=== PATIENT | female | born 1960 | race Caucasian/White ===

== ENCOUNTER 2018-11-28 08:39 | Day surgery (SDC) | payer BC, OTHER ==
[2018-11-27 12:56] VITALS: BMI 32.8
[2018-11-28] MEDS ORDERED: MIDAZOLAM HCL 2 MG/2 ML SINGLE DOSE VIAL ONE ×2 (11:01)
[2018-11-28] MEDS ORDERED: ceFAZolin SODIUM 1 GM VIAL IVPB ONE (11:12)
[2018-11-28] MEDS ORDERED: PROPOFOL 20 ML ONE (11:14)
[2018-11-28] MEDS ORDERED: ceFAZolin SODIUM 1 GM VIAL ONE (11:22)
[2018-11-28] MEDS ORDERED: LIDOCAINE 1%-EPI 1:100,000 30 ML MDV IJ ONE (11:24)
[2018-11-28] MEDS ORDERED: LIDOCAINE 1%/EPI 1:100000 (20 ML MULTI DOSE VIAL) IJ ONE (11:47)
[2018-11-28] MEDS ORDERED: BACITRACIN 50,000 UNITS VIAL NR ONE (11:48)
[2018-11-28 12:15] VITALS: TEMP 98.1
--- NOTE | 2018-11-28 12:47 | OP ---
Operative Note - Note: Operative Date: 11/28/18 Pre-Operative Diagnosis: Incontinence Operation: Removal of Interstim device Findings: retained battery and wire Post-Operative Diagnosis: Same as Pre-op Surgeon: Fabio Sky MD. Anesthesia: Epidural Specimens Removed: interstim device and wire Estimated Blood Loss (mls): 2
[2018-11-28 13:37] VITALS: BP 122/84; PULSE 79
--- NOTE | 2018-11-29 14:02 | OP ---
DATE OF OPERATION: 11/28/2018 PREOPERATIVE DIAGNOSES: Urge incontinence and fecal incontinence. POSTOPERATIVE DIAGNOSES: Urge incontinence and fecal incontinence. PROCEDURE: Removal of InterStim device. HISTORY: This is a pleasant 58-year-old female who had an InterStim device placed approximately 5 years ago by another physician. By patient report, the device had not been working for quite some time. It was recommended that the patient have the device removed and a new one placed at the same time; however, after a discussion with the patient's other physicians, it was determined to leave it out to get an MRI of her spine due to spinal condition and prior surgeries. All questions were answered. The patient agrees to proceed with the procedure. Risks and benefits were discussed in detail. BRIEF OPERATIVE NOTE: The patient was brought in the operating room, placed in the prone position. Once sedation was administered, patient was prepped and draped in standard sterile fashion. Intravenous antibiotics were given. At this time, an incision was made over the InterStim device pocket. The device was exposed using blunt and sharp dissection. The device was brought in to the operative field. The wire was identified and the site at which the wire was placed more towards the midline was identified. An approximately 1 cm incision was made over the initial percutaneous site. The wire was then rolled up and removed from the patient without difficulty. All prongs were intact. At this time, the entire device was removed. The operative field was irrigated with copious amounts of normal saline and antibiotic irrigation. The percutaneous site was closed using 1 subcuticular stitch of 3-0 Vicryl. The pocket was closed in 2 layers using a 3-0 Vicryl. A dry sterile occlusive dressing was then applied. The patient was brought to the recovery room in stable and satisfactory condition. Danny [id number]
--- NOTE | 2018-11-29 19:02 | PATH ---
Surgical Pathology Report Patient Name: TRENT QUINN Med. Rec. #: [id number] /Age/Gender: 1960 (Age: 58) / F Account: [id number] Location: [facility] Taken: 11/28/2018 Received: 11/28/2018 Reported: 11/29/2018 Physicians: Fabio Sky M.D. Specimen(s) Received HARDWARE Clinical History Urinary incontinence Final Diagnosis HARDWARE, REMOVAL: [employer] SPECIALIST (INTERSTIM DEVICE). MACROSCOPIC DIAGNOSIS. Electronically Signed Jasmin Anderson M.D. Gross Description Received fresh labeled "hardware" is a medical Interstim device measuring 5 x 4 x 0.7 cm with inscription of [id number]. A 15 cm in length wire is identified separately in the same container. No soft tissue present, for gross examination only. MLSZ/11/28/2018 sanml/11/28/2018
== END 2018-11-28 13:37 | disposition home or self-care (01) ==
LOC: JASU-SURG 08:39
PROVIDERS: ATTEND Urology
PROC: 0JPT0MZ Removal of Stimulator Generator from Trunk Subcutaneous Tissue and Fascia, Open Approach (ICD-10-PCS; 2018-11-28)
PROC: 01PY0MZ Removal of Neurostimulator Lead from Peripheral Nerve, Open Approach (ICD-10-PCS; principal; 2018-11-28 10:00)
DX: Z46.2 Encounter for fitting and adjustment of other devices related to nervous system and special senses (principal); R32 Unspecified urinary incontinence; R15.9 Full incontinence of feces
CPT/HCPCS: 76000-TC-FY; 88300-TC